=== PATIENT | female | born 1965 ===

== ENCOUNTER 2017-03-13 14:05 | Emergency (ER) | payer MEDICAID, OTHER ==
[2017-03-13 14:18] VITALS: BP 143/73; PULSE 75; RESP 18; TEMP 98; O2SAT 100
[2017-03-13] MEDS ORDERED: Naproxen 500 MG TAB PO STA (14:24)
--- NOTE | 2017-03-13 14:27 | ED PDOC ---
Lower Extremity Pain/Injury Time Seen by Provider: 03/13/17 14:25 Chief Complaint (Nursing): Lower Extremity Problem/Injury Chief Complaint (Provider): FOOT PAIN History Per: Patient (51 Y/O FEMALE HERE WITH LEFT FOOT PAIN NOTED X 3 WEEKS WORSENING. DENIES ANY FALLS/TRAUMA IN LEFT FOOT. NO FEVERS/CHILLS. ) Past Medical History Reviewed: Historical Data, Nursing Documentation, Vital Signs Vital Signs: Last Vital Signs Temp 98 F 03/13/17 14:16 Pulse 75 03/13/17 14:16 Resp 18 03/13/17 14:16 BP 143/73 03/13/17 14:16 Pulse Ox 100 03/13/17 14:16 - Medical History PMH: Asthma - Family History Family History: States: No Known Family Hx - Home Medications Home Medications: Ambulatory Orders Medication Instructions Recorded Naproxen 1 tab PO Q12 PRN #14 tab 03/13/17 - Allergies Allergies/Adverse Reactions: Allergies Allergy/AdvReac Type Severity Reaction Status Date / Time No Known Allergies Allergy Verified 03/02/15 11:57 Review of Systems ROS Statement: Except As Marked, All Systems Reviewed And Found Negative Musculoskeletal: Positive for: Foot Pain Physical Exam - Reviewed Nursing Documentation Reviewed: Yes Vital Signs Reviewed: Yes - Physical Exam Appears: Positive for: Well, Non-toxic, No Acute Distress Head Exam: Positive for: ATRAUMATIC, NORMAL INSPECTION, NORMOCEPHALIC Skin: Positive for: Normal Color, Warm, DRY Eye Exam: Positive for: EOMI, Normal appearance, PERRL ENT: Positive for: Normal ENT Inspection Neck: Positive for: Normal, Painless ROM Cardiovascular/Chest: Positive for: Regular Rate, Rhythm Respiratory: Positive for: CNT, Normal Breath Sounds Gastrointestinal/Abdominal: Positive for: Normal Exam, Bowel Sounds, Soft Back: Positive for: Normal Inspection Extremity: Positive for: Normal ROM, Tenderness (TENDER DORSUM OF LEFT FOOT. NO ERYTHEMA NOTED. 2 + PULSE DP/PT) Neurologic/Psych: Positive for: Alert, Oriented - ECG O2 Sat by Pulse Oximetry: 100 - Progress ED Course And Treament: NAPROXEN 500 MG X 1 DOSE XRAY OF FOOT: IMPRESSION: No evidence of acute displaced fracture nor dislocation. Small posterior calcaneal enthesophyte. Disposition - Clinical Impression Clinical Impression: Foot pain - Patient ED Disposition Is Patient to be Admitted: No - Disposition Referrals: Podiatry Clinic [Outside] Disposition: Routine/Home Disposition Time: 15:16 Condition: FAIR Prescriptions: Naproxen 1 tab PO Q12 PRN #14 tab PRN Reason: Pain, Severe (8-10) Instructions: Foot Sprain (ED) Forms: [employer] ED School/Work Excuse Print Language: ITALIAN
--- NOTE | 2017-03-13 14:44 | RAD ---
PROCEDURE: Left Foot Radiographs. HISTORY: FOOT PAIN NO OBVIOUS INJURY R/O STRESS FX COMPARISON: None. FINDINGS: BONES: Normal. No fracture. JOINTS: Minimal degenerative changes 1st MTP joint. SOFT TISSUES: Normal. OTHER FINDINGS: None. IMPRESSION: No evidence of acute displaced fracture nor dislocation. Small posterior calcaneal enthesophyte.
[2017-03-13] MEDS ORDERED: Naproxen 500 MG TAB PO ONE (15:19)
== END 2017-03-13 15:59 | disposition home or self-care (01) ==
LOC: H.ER 14:05
DX: M79.672 Pain in left foot (principal)